=== PATIENT | female | born 1940 | race African-American/Black ===

== ENCOUNTER 2024-06-15 17:28 | Emergency (ER) | payer SELFPAY ==
[~2024-06-15] VITALS: Ht 165.1 cm; Wt 91.0 kg
[2024-06-15 17:30] VITALS: O2SAT 0
[2024-06-15 17:32] VITALS: BP 0/0; PULSE 0; RESP 0; O2SAT 0
== END 2024-06-15 20:18 ==
LOC: ER 17:28
DX: I46.9 Cardiac arrest, cause unspecified (principal); F19.90 Other psychoactive substance use, unspecified, uncomplicated
CPT/HCPCS: 92950; 99285